=== PATIENT | male | born 1965 | race American Indian/Alaskan Native ===

== ENCOUNTER 2021-01-16 11:07 | Outpatient (CLI) | payer OTHER ==
--- NOTE | 2021-01-16 13:03 | XRay Report ---
Lumbar spine 3 views INDICATION: Canal narrowing FINDINGS: Alignment appears normal. No compression fracture. Mild facet change at L4-5 and L5-S1. Cervical spine 2 views INDICATION: Canal narrowing FINDINGS: No prevertebral soft tissue swelling. Cervical thoracic junction appears normal. Endplate c hanges at C5-C6 and C6-C7. Signer Name: Alfredo Ng MD Signed: 01/16/2021 12:57 PM Workstation Name: [facility] [id number]
--- NOTE | 2021-01-16 13:03 | XRay Report ---
Lumbar spine 3 views INDICATION: Canal narrowing FINDINGS: Alignment appears normal. No compression fracture. Mild facet change at L4-5 and L5-S1. Cervical spine 2 views INDICATION: Canal narrowing FINDINGS: No prevertebral soft tissue swelling. Cervical thoracic junction appears normal. Endplate c hanges at C5-C6 and C6-C7. Signer Name: Alfredo Ng MD Signed: 01/16/2021 12:57 PM Workstation Name: [facility] [id number]
== END 2021-01-16 11:08 | disposition home or self-care (01) ==
LOC: XRAY 11:07
PROVIDERS: ATTEND Internal Medicine
DX: M50.323 Other cervical disc degeneration at C6-C7 level (principal); M50.322 Other cervical disc degeneration at C5-C6 level; M48.02 Spinal stenosis, cervical region
CPT/HCPCS: 72020; 72100